=== PATIENT | male | born 1985 | race Caucasian/White ===

== ENCOUNTER 2016-10-06 15:20 | Emergency (ER) | payer MEDICAID, OTHER ==
[~2016-10-06] VITALS: Ht 175.3 cm; Wt 64.0 kg
[2016-10-06 16:17] LABS: HEMOGLOBIN 14.1 g/dL (14.0-18.0); MEAN CORPUSCULAR VOLUME 88.3 fL (80.0-94.0); PLATELET 231 x1000/uL (130-400); RED BLOOD CELL COUNT 4.53 mill/uL (4.7-6.1); RED CELL DISTRIBUTION WIDTH 13.4 % (11.6-14.6)
[2016-10-06] MEDS ORDERED: SODIUM CHLORIDE 0.9% 1,000 ML IV ONE (16:27)
[2016-10-06] MEDS ORDERED: SODIUM CHLORIDE 0.9% 1,000 ML IV SCH (20:02)
[2016-10-06] MEDS ORDERED: DEXT 5%/0.45% NACL 1000ML 1,000 ML IV ONE (20:18)
[2016-10-06] MEDS ORDERED: LEVETIRACETAM 500 MG IV ONE (20:30)
[2016-10-06 21:36] VITALS: BP 112/74
== END 2016-10-06 21:41 | disposition left against medical advice (07) ==
LOC: ER 15:42 → ENRESERV 20:26 → ER 21:41 → CANBEDREQ 21:45
DX: R41.82 Altered mental status, unspecified (principal); R56.9 Unspecified convulsions; F17.200 Nicotine dependence, unspecified, uncomplicated
CPT/HCPCS: 36415; 70450; 80048; 82962; 85027; 96361; 96365; 99285; J1953; J3490; Z7610; J7030